=== PATIENT | male | born 2000 | race Two or more races ===

== ENCOUNTER 2021-08-04 20:44 | Emergency (ER) | payer MEDICAID ==
[~2021-08-04] VITALS: Ht 175.3 cm; Wt 68.0 kg
[2021-08-04 21:33] LABS: Basophils # (auto) 0.1 10 ^3/uL (0-0.2); Basophils % (auto) 1.2 % (0.0-2.0); Eosinophils # (auto) 0 10 ^3/uL (0-0.8); Eosinophils % (auto) 0.8 % (0.0-7.0); Hematocrit 44.8 % (41.0-53.0); Hemoglobin 15.5 g/dL (13.5-17.5); Lymphocytes % (auto) 33.4 % (10.0-50.0); Mean Corpuscular Hemoglobin 28.7 pg (28.0-32.0); Mean Corpuscular Hgb Conc. 34.7 g/dL (32.0-36.0); Mean Corpuscular Volume 82.7 fL (80.0-100.0); Monocytes # (auto) 0.6 10 ^3/uL (0-1.3); Monocytes % (auto) 9.4 % (0.0-12.0); Neutrophils # (auto) 3.4 10 ^3/uL (1.6-8.6); Neutrophils % (auto) 55.2 % (37.0-80.0); Nucleated Red Blood Cells % 0.2 %; Red Blood Cells 5.42 10^6/uL (4.5-5.90); White Blood Cell 6.1 10^3/uL (4.4-10.8)
[2021-08-04 21:50] LABS: Chloride 107 mmol/L (98-107); Potassium 3.8 mmol/L (3.5-5.1); Sodium 141 mmol/L (136-145)
[2021-08-04 21:54] LABS: Albumin 4.3 g/dL (3.4-5.0); Anion Gap 8 (5-15); Aspartate Aminotransferase 15 U/L (15-37); BUN/Creatinine Ratio 12.6; Blood Urea Nitrogen 11 mg/dL (7-18); Calcium 9.3 mg/dL (8.5-10.1); Carbon Dioxide 26 mmol/L (21-32); GFR African American 144 mL/min; GFR Non-African American 119 mL/min; Glucose 104 mg/dL (74-106)
[2021-08-04 21:58] LABS: Alanine Aminotransferase 23 U/L (16-61); Alkaline Phosphatase 117 U/L (45-117); Bilirubin, Total 0.1 mg/dL (0.2-1.0)
[2021-08-04 23:32] VITALS: BP 130/81
== END 2021-08-04 23:44 | disposition home or self-care (01) ==
LOC: ER 20:44
DX: R07.89 Other chest pain (principal)
CPT/HCPCS: 36415; 71045; 80053; 84484; 85025; 93005

== ENCOUNTER 2024-12-24 05:29 | Emergency (ER) | payer MEDICAID ==
[~2024-12-24] VITALS: Ht 177.8 cm; Wt 85.0 kg
[2024-12-24 05:32] VITALS: BP 140/92; PULSE 77; RESP 16; TEMP 97.8; O2SAT 97
--- NOTE | 2024-12-24 06:50 | ED.PDOC ---
Musculoskeletal HPI Comments A 24 YEAR OLD MALE PRESENTS TO THE ED WITH COMPLAINT OF WRIST PAIN S/P LIFTING BOXES AT WORK. PATIENT STATES THAT HE WAS AT WORK AND WAS LIFTING BOXES AND SINCE THEN HAS NOT BEEN ABLE TO TWIST OR TURN HIS RIGHT WRIST FOR THE PAST 3 DAYS. PATIENT REPORTS THAT THE WRIST IS PAINFUL AND NOTHING HAS ALLEVIATED THE SYMPTOMS. PATIENT DENIES ANY TRAUMA OR INJURIES TO THE WRIST. PATIENT HAS NO DEFORMITIES. PATIENT DENIES FEVER, CHILLS, SHORTNESS OF BREATH, CHEST PAIN, ABDOMINAL PAIN, NAUSEA, VOMITING, HEADACHE, OR OTHER COMPLAINTS. NO OTHER SYMPTOMS OR MODIFYING FACTORS AT THIS TIME. PATIENT IS ALERT, ORIENTED X 4, AND HAS STEADY GAIT. Chief Complaint: Upper Extremity Time Seen by MD: 06:37 Reviewed Notes: Nurses Notes, Medications, Allergies Allergies: Coded Allergies: NO KNOWN ALLERGIES (Unverified , 08/04/21) Information Source: Patient Mode of Arrival: Ambulatory Location: Right Extremity Location: Hand, Wrist Timing: Days Prehospital treatment: None Severity: Mild, Moderate Able to Move Extremity: Yes Bear Weight: Limited Pain: Moderate Hand Dominance: Right Mechanism: Twisting Circumstances: Work Related Onset of Symptoms: After Exercise Symptoms: Pain DVT Risk Factors: NONE Last Tetanus: UTD Associated signs and symptoms: Wrist pain Past Medical History PAST MEDICAL HISTORY: Denies Surgical History: Denies all surgeries Family History Family History: Reviewed,noncontributory to illness Social History Smoker: Non-Smoker Alcohol: Denies ETOH Use Drugs: Denies Drug Use Lives In: Home Constitutional: denies: chills, diaphoresis, fatigue, fever, malaise, sweats, weakness, others EENTM: denies: blurred vision, double vision, ear bleeding, ear discharge, ear drainage, ear pain, ear ringing, eye pain, eye redness, hearing loss, mouth pain, mouth swelling, nasal discharge, nose bleeding, nose congestion, nose pain, photophobia, tearing, throat pain, throat swelling, voice changes, others Respiratory: denies: cough, hemoptysis, orthopnea, SOB at rest, shortness of breath, SOB with excertion, stridor, wheezing, others Cardiovascular: denies: chest pain, dizzy spells, diaphoresis, Dyspnea on exertion, edema, irregular heart beat, left arm pain, lightheadedness, palpitations, PND, syncope, others Gastrointestinal: denies: abdomen distended, abdominal pain, blood streaked bowels, constipated, diarrhea, dysphagia, difficulty swallowing, hematemesis, melena, nausea, poor appetite, poor fluid intake, rectal bleeding, rectal pain, vomiting, others Genitourinary: denies: burning, dysuria, flank pain, frequency, hematuria, incontinence, penile discharge, penile sore, pain, testicle pain, testicle swelling, urgency, others Neurological: denies: dizziness, fainting, headache, left sided numbness, left sided weakness, numbness, paresthesia, pre-existing deficit, right sided numbness, right sided weakness, seizure, speech problems, tingling, tremors, weakness, others Musculoskeletal: reports: joint pain, joint swelling, muscle pain; denies: back pain, gout, muscle stiffness, neck pain, others Integumetry: denies: bruises, change in color, change in hair/nails, dryness, laceration, lesions, lumps, rash, wounds, others Allergic/Immunocompromised: denies: Difficulty Healing, Frequent Infections, Hives, Itching, others Hematologic/Lymphatic: denies: anemia, blood clots, easy bleeding, easy bruising, swollen glands, others Endocrine: denies: excessive hunger, excessive sweating, excessive thirst, excessive urination, flushing, intolerance to cold, intolerance to heat, unexplained weight gain, unexplained weight loss, others Psychiatric: denies: anxiety, bipolar disorder, depression, hopeless, panic disorder, schizophrenia, sleepless, suicidal, others All Other Systems: Reviewed and Negative Physical Exam General Appearance: No Apparent Distress, Normal HEENT: Normal ENT Inspection, PERRL/EOMI, Pharynx Normal, TMs Normal Neck: Full Range of Motion, Non-Tender, Normal, Normal Inspection Respiratory: Chest Non-Tender, Lungs Clear, No Accessory Muscle Use, No Respiratory Distress, Normal Breath Sounds Cardiovascular: No Edema, No JVD, No Murmur, No Gallop, Normal Peripheral Pulses, Regular Rate/Rhythm Breast Exam: Deferred Gastrointestinal: No Organomegaly, Non Tender, No Pulsatile Mass, Normal Bowel Sounds, Soft Genitalia: Deferred Pelvic: Deferred Rectal: Deferred Extremities: No calf tenderness, Normal capillary refill, Normal range of mo tion, No pedal edema, Tender (AND MILD SWELLING ON RIGHT DORSAL HAND, NO BONY TENDERNESS AND DEFORMITY. ) Musculoskeletal : Apperance: Normal Neurologic: Alert, academic physician II-XII nml as Tested, No Motor Deficits, Normal Affect, Normal Mood, No Sensory Deficits Cerebellar Function: Normal Reflexes: Normal Skin: Dry, Normal Color, Warm Peripheral Pulses: 2+ carotid (R), 2+ carotid (L), 2+ Radial (R), 2+ Radial (L) Lymphatic: No Adenopathy Was a procedure done? Was a procedure done?: No Differential Diagnosis EXT Differential Diagnosis: Fracture, Sprain, Contusion, Strain X-Ray, Labs, Meds, VS Vital Signs Date Time Temp Pulse Resp B/P (MAP) Pulse Ox O2 Delivery O2 Flow Rate FiO2 12/24/24 05:32 97.8 77 16 140/92 97 97.8 X-Ray, Labs, Meds, VS Comment EXTERNAL MEDICAL RECORDS REVIEWED: [NONE] INDEPENDENT HISTORIANS: [NONE] SOCIAL DETERMINANTS OF HEALTH: [NONE] LABS ORDERED: NONE REVIEWED AND INTERPRETED RESULTS: NONE IMAGING ORDERED: RIGHT HAND: NO FX AND DISLOCATION, READ BY ME, PENDING RADIOLOGIST READING. TREATMENTS ORDERED: NO PROCEDURES PERFORMED: NONE CRITICAL CARE TIME: NONE I HAVE DISCUSSED THE PATIENT WITH THE ATTENDING PHYSICIAN DR. ESTRADA AND HE AGREES WITH THE PATIENT'S PLAN OF CARE AND DISPOSITION. BASED ON HISTORY OF PRESENT ILLNESS, AND PHYSICAL EXAM, PATIENT WILL BE DISCHARGED HOME. DISCUSSED PLAN FOR DISCHARGE HOME WITH RX []. MEDICATION WARNINGS GIVEN. SHARED DECISION MAKING: DISCUSSED WITH PATIENT THAT THEIR WORKUP WAS NORMAL. PATIENT INSTRUCTED TO FOLLOW UP WITH PRIMARY CARE PROVIDER IN 1-2 DAYS FOR RE- EVALUATION OF SYMPTOMS. PATIENT VERBALIZES UNDERSTANDING TO RETURN TO ED FOR NEW OR WORSENING SYMPTOMS OR IF FOLLOW UP WITH PCP CANNOT BE OBTAINED. PATIENT FEELS COMFORTABLE GOING HOME AT THIS TIME. ALL QUESTIONS ADDRESSED AT TIME OF DISCHARGE. Images Reviewed?: Images reviewed and evaluated by me Time of 1ST Reevaluation: 07:20 Reevaluation 1ST: Improved Patient Education/Counseling: Diagnosis, Treatment, Need For Follow Up Family Education/Counseling: Diagnosis, Treatment, No Family Present Medical Screening: No EMC Exist At This Time Departure 1 Departure Time of Disposition: 07:20 Impression: Primary Impression: Sprain of right hand Qualified Codes: S63.91XA - Sprain of unspecified part of right wrist and hand, initial encounter Disposition: HOME / SELF CARE / HOMELESS Condition: Stable Additional Instructions: FOLLOW-UP WITH PCP IN 1 TO 2 DAYS. TAKE MEDICATIONS PRESCRIBED. RETURN TO ED FOR ANY NEW OR WORSENING SYMPTOMS. e-Prescriptions Naproxen (Naproxen) 500 Mg Tab 500 MG PO BID, #30 TAB Prov: SANDY BLAS 12/24/24 Discharged With: Self Critical Care Note Critical Care Time?: No Stability Stability form required: No Heart Score Heart Score: Heart Score Response (Comments) Value History N/A 0 EKG N/A 0 Age N/A 0 Risk Factors N/A 0 Troponin N/A 0 Total 0 I personally scribed for SANDY BLAS ([email or web address]) on 12/24/24 at 06:50. Electronically submitted by Earl Verde ([email or web address]). SANDY BLAS Dec 24, 2024 06:50
[2024-12-24] MEDS ORDERED: NAPR-746 PO (07:00)
--- NOTE | 2024-12-24 07:16 | DVH ---
XY R HAND 3 VIEW XRAY, INDICATION: injury TECHNICAL DATA: Frontal, oblique and lateral views were obtained of the right hand. COMPARISON: None FINDINGS: No fracture is identified. Joint spaces are maintained. Alignment is anatomic. No soft tissue abnorma lity. IMPRESSION: 1. No acute fracture or dislocation of the right hand.
== END 2024-12-24 07:07 | disposition home or self-care (01) ==
LOC: ER 05:29
DX: S63.91XA Sprain of unspecified part of right wrist and hand, initial encounter (principal); X50.0XXA Overexertion from strenuous movement or load, initial encounter; Y93.89 Activity, other specified; Y92.89 Other specified places as the place of occurrence of the external cause; Y99.0 Civilian activity done for income or pay
CPT/HCPCS: 73130